=== PATIENT | male | born 1985 ===

== ENCOUNTER 2019-04-17 17:33 | Emergency (ER) | payer OTHER ==
[~2019-04-17] VITALS: Ht 170 cm; Wt 88.0 kg
--- NOTE | 2019-04-17 18:08 | Diagnostic Imaging Report ---
INDICATION: Fall, pain. FINDINGS: There is an obliquely oriented fracture through the distal fibula at the lateral malleolus. In the lateral radiograph, there appears to be a vertically and slightly obliquely oriented fracture of the posterior malleolus of the distal tibia. Medial malleolus shows a tiny avulsion off of its distal tip, that bony fragment is about 4 mm in length x 1 mm in thickness. Punctate superficial radiopacities diffusely about the ankle and foot noted. There is marked circumferential soft tissue swelling. IMPRESSION: Without dislocation, there are trimalleolar fractures of the ankle; as described. Severe soft tissue swelling diffusely noted. Dictated by: Dictated on workstation # [id number]
[2019-04-17] MEDS ORDERED: ACHD5005 PO (19:32)
--- NOTE | 2019-04-17 19:32 | ED Lower Extremity ---
General Chief Complaint: Lower Extremity Stated Complaint: L ANKLE INJ Nursing Triage Note: PT TO ED W/ C/O LT ANKLE PAIN ONSET AFTER ROLLING IT AT WORK. PAIN ET SWELLING NOTED TO LT ANKLE Nursing Sepsis Screen: No Definite Risk Source: patient, front facer Exam Limitations: no limitations History of Present Illness Date Seen by Provider: Apr 17, 2019 Time Seen by Provider: 17:48 Initial Comments This 33-year-old gentleman presents to the emergency room with pain and swelling throughout the left ankle after rolling it at work today. He denies any other injury. Allergies and Home Medications Allergies Coded Allergies: No Known Drug Allergies (Unverified , 04/17/19) Home Medications Hydrocodone Bit/Acetaminophen 1 Tab Tab, 1-2 EACH PO Q6H PRN for PAIN-MODERATE Prescribed by: COREY LLOYD on 04/17/191931 Patient Home Medication List Home Medication List Reviewed: Yes Review of Systems Constitutional: no symptoms reported EENTM: no symptoms reported Respiratory: no symptoms reported Cardiovascular: no symptoms reported Gastrointestinal: no symptoms reported Genitourinary: no symptoms reported Musculoskeletal: see HPI Skin: no symptoms reported Psychiatric/Neurological: No Symptoms Reported Past [place]-Segzlk-Uavvnn Hx Patient Social History Alcohol Use: Denies Use Recreational Drug Use: No Smoking Status: Never a Smoker Recent Foreign Travel: No Contact w/Someone Who Travel: No Recent Infectious Disease Expo: No Past Medical History Surgeries: Yes (LT HAND REPAIR) Respiratory: No Cardiac: No Neurological: No Gastrointestinal: No Musculoskeletal: No Endocrine: No HEENT: No Cancer: No Psychosocial: No Physical Exam Vital Signs Vital Signs - First Documented 04/17/19 17:43 Temp 36.0 Pulse 71 Resp 18 B/P (MAP) 174/107 (129) Pulse Ox 98 O2 Delivery Room Air Capillary Refill : Less Than 3 Seconds Height, Weight, BMI Height: '" Weight: lbs. oz. kg; 30.00 BMI Method: General Appearance: WD/WN, no apparent distress HEENT: normal ENT inspection Cardiovascular: regular rate, rhythm, no murmur Respiratory: lungs clear, normal breath sounds, no respiratory distress Legs: left leg non-tender, left leg normal inspection, left leg no evidence of injury Knees: left knee non-tender, left knee normal inspection, left knee no evidence of injury Ankles: left ankle bone tenderness, left ankle limited range of motion, left ankle pain, left ankle swelling Feet: left foot non-tender, left foot normal inspection, left foot other (Pedal pulse and distal sensation intact.) 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 Yang. Patient was placed in a step light boot and crutches were dispensed. He would like to see the patient in his clinic next week. Patient declined pain medication in the ER and declined a take-home pack. He wishes to use Tylenol and ibuprofen tonight and fill his prescription tomorrow. Paperwork for occupational health was completed. Diagnostic Imaging Diagonstic Imaging: Xray Plain Films/CT/US/NM/MRI: ankle Comments Ankle x-ray viewed by me and report reviewed. See report below: NAME: MARY HEATH [facility] REC#: [id number] PT STATUS: DEP ER : [id number] PHYSICIAN: SORAYA LEON MD ADMIT DATE: 04/17/19/ER Signed Date of Exam:04/17/19 ANKLE, LEFT, 3 VIEWS INDICATION: Fall, pain. FINDINGS: There is an obliquely oriented fracture through the distal fibula at the lateral malleolus. In the lateral radiograph, there appears to be a vertically and slightly obliquely oriented fracture of the posterior malleolus of the distal tibia. Medial malleolus shows a tiny avulsion off of its distal tip, that bony fragment is about 4 mm in length x 1 mm in thickness. Punctate superficial radiopacities diffusely about the ankle and foot noted. There is marked circumferential soft tissue swelling. IMPRESSION: Without dislocation, there are trimalleolar fractures of the ankle; as described. Severe soft tissue swelling diffusely noted. Dictated by: Dictated on workstation # [id number] Dict: 04/17/19 1804 Trans: 04/17/192018 AS6 [id number] Interpreted by: FLORA STEARNS Electronically signed by: FLORA STEARNS 04/17/192018 Departure Impression Primary Impression: Trimalleolar fracture of left ankle Qualified Codes: S82.852A - Displaced trimalleolar fracture of left lower leg, initial encounter for closed fracture Disposition: HOME, SELF-CARE Condition: Improved Departure-Patient Inst. Referrals: NO,LOCAL PHYSICIAN (PCP) Primary Care Physician SKYLAR YANG MD Patient Instructions: Ankle Fracture (DC) Add. Discharge Instructions: Keep the boot on his much as possible. You may adjust the boot if it becomes too tight or too loose. Elevate the foot to the level of your heart as much as possible. You may ice in 20 minute intervals to help manage pain and swelling. Do not walk or bear weight on your left foot. Contact Dr. Yang's office on Saturday for follow-up. If your employer indicates, follow-up with [employer]. Return to the emergency room if you have any further problems or concerns. Tonight you may take ibuprofen up to 600 mg every 6 hours as needed for the first couple of days. Then tomorrow fill your pain medication and use it as prescribed instead of Tylenol and ibuprofen. All discharge instructions reviewed with patient and/or family. Voiced understanding. Scripts Hydrocodone Bit/Acetaminophen (Hydrocodone/Acetaminophen 5/325mg Tablet) 1 Tab Tab 1-2 EACH PO Q6H PRN for PAIN-MODERATE MDD 10, #30 TAB 0 Refills Prov: COREY MADSEN MD 04/17/19 Copy Copies To 1: SKYLAR YANG MD, JOSHUA T MD Apr 17, 2019 19:32
[2019-04-17 19:37] VITALS: BP 156/90
== END 2019-04-17 19:40 | disposition home or self-care (01) ==
LOC: ER 17:34
DX: S82.852A Displaced trimalleolar fracture of left lower leg, initial encounter for closed fracture (principal); X50.1XXA Overexertion from prolonged static or awkward postures, initial encounter; Y92.59 Other trade areas as the place of occurrence of the external cause
CPT/HCPCS: 73610